=== PATIENT | female | born 1965 | race Caucasian/White ===

== ENCOUNTER 2018-07-21 17:02 | Emergency (ER) | payer MEDICAID, OTHER ==
[~2018-07-21] VITALS: Ht 165.1 cm; Wt 80.7 kg
[~2018-07-21 17:02] MED LIST: SYN.075 PO
[2018-07-21 17:18] VITALS: BP 133/91
--- NOTE | 2018-07-21 17:20 | NUR ---
PATIENT PRESENTS TO ED WITH C/O GENERAL WEAKNESS SINCE YESTERDAY. PT STATES IT STARTED YESTERDAY AT [facility] PT STATES SHE HAS GENERALIZED BODY ACHES IN HER BONE . DENIES N/V/D; SKIN IS PINK/WARM/DRY; AAOX4 WITH EVEN AND STEADY GAIT; LUNGS CLEAR BL; HR EVEN AND REGULAR; PT DENIES ANY FEVER, CP, SOB, OR COUGH AT THIS TIME; PATIENT STATES PAIN OF 5/10 AT THIS TIME; VSS; PATIENT POSITIONED FOR COMFORT; HOB ELEVATED; BEDRAILS UP X2; BED DOWN. ER MD MADE AWARE OF PT STATUS.
[2018-07-21 18:43] LABS: BASOPHILS % (AUTO) 0.1 % (0.0-2.0); EOSINOPHILS # (AUTO) 0.1 K/uL (0-0.4); EOSINOPHILS % (AUTO) 2.4 % (0.0-4.0); HEMATOCRIT 38.3 % (36-48); HEMOGLOBIN 12.5 g/dL (12.0-16.0); LYMPHOCYTES # (AUTO) 0.9 K/uL (2.5-16.5); LYMPHOCYTES % (AUTO) 24.1 % (20.5-51.1); MEAN CORPUSCULAR HEMOGLOBIN 30 pg (27-31); MEAN CORPUSCULAR HGB CONC 33 g/dL (33-37); MEAN CORPUSCULAR VOLUME 90.8 fL (80-94); MONOCYTES # (AUTO) 0.5 K/uL (0.8-1.0); MONOCYTES % (AUTO) 12.6 % (1.7-9.3); NEUTROPHILS # (AUTO) 2.3 K/uL (1.8-7.7); NEUTROPHILS % (AUTO) 60.8 % (42.2-75.2); PLATELET COUNT (AUTO) 228 K/uL (140-450); RED BLOOD CELL COUNT(AUTO) 4.22 MIL/uL (4.20-5.40); RED CELL DISTRIBUTION WIDTH 12.7 % (11.6-13.7); WHITE BLOOD COUNT (AUTO) 3.8 K/uL (4.8-10.8)
[2018-07-21 18:53] LABS: CARBON DIOXIDE 32.2 mmol/L (21-32); CREATININE 0.8 mg/dL (0.6-1.3); POTASSIUM 4.2 mmol/L (3.5-5.1)
[2018-07-21 19:06] LABS: ALBUMIN 3.5 g/dL (3.4-5.0); TOTAL BILIRUBIN 0.2 mg/dL (0.0-1.0)
--- NOTE | 2018-07-21 19:10 | NUR ---
FLU SWABS DONE, SENT TO LAB. PT TOLERATED WELL.
--- NOTE | 2018-07-21 19:12 | NUR ---
STEPHEN GAVE REPORT, PT VSS.
--- NOTE | 2018-07-21 20:52 | NUR ---
Dr. Mauro evaluating patient at bedside.
[2018-07-21 21:03] VITALS: BP 133/91
--- NOTE | 2018-07-21 21:03 | NUR ---
Patient discharged with v/s stable. Written and verbal after care instructions given and explained. Patient verbalized understanding. Ambulatory with steady gait. All questions addressed prior to discharge. Advised to follow up with PMD.
== END 2018-07-21 21:03 | disposition home or self-care (01) ==
LOC: MED 17:02
DX: B34.9 Viral infection, unspecified (principal); E11.9 Type 2 diabetes mellitus without complications; I10 Essential (primary) hypertension; E03.9 Hypothyroidism, unspecified; Z79.899 Other long term (current) drug therapy
CPT/HCPCS: 36415; 71045; 80053; 81002; 81025; 85025; 87804; 99284

== ENCOUNTER 2018-12-25 12:57 | Emergency (ER) | payer SELFPAY ==
[~2018-12-25] VITALS: Ht 165.1 cm; Wt 79.4 kg
[2018-12-25 13:11] VITALS: BP 116/64
[2018-12-25] MEDS ORDERED: IBUPROFEN 800 MG TAB PO ONE (13:35)
[2018-12-25] MEDS ORDERED: HYDROcodone/APAP 5/325 MG 1 TAB TAB PO ONE (13:35)
--- NOTE | 2018-12-25 13:45 | NUR ---
PT PROVIDED WITH BEDPAN TO PEE. UNABLE TO PEE AT THIS TIME. WILL GIVE SOME WATER.
--- NOTE | 2018-12-25 13:50 | NUR ---
PT WENT FOR X-RAY.
--- NOTE | 2018-12-25 14:29 | NUR ---
pt refusing norco, states she had bad experience previously where she didnt like the way she felt, dr ordonez made aware, pt ok with motrin.
--- NOTE | 2018-12-25 14:30 | NUR ---
pt states she is unable to urinate at this time, pt states she has had tubal ligation and is sure she is not .
--- NOTE | 2018-12-25 14:43 | NUR ---
bib family for rt hip s/p dancing yesterday. pt denies fall or trauma at time of injury. pt has not been able to bear weight on rt leg. pt took tylenol at home w/ mild relief. pt awake and alert, pt sitting in bed positioned to comfort.
[2018-12-25] MEDS ORDERED: ONDANSETRON 4 MG/2 ML VIAL IVP ONE (15:05)
[2018-12-25] MEDS ORDERED: NACL 0.9% 1,000 ML IV ONE (15:05)
[2018-12-25 15:32] LABS: BILIRUBIN,URINE NEGATIVE (NEGATIVE); BLOOD, URINE TRACE-I (NEGATIVE); COLOR,URINE YELLOW (YELLOW); LEUKOCYTE ESTERASE ,URINE NEGATIVE (NEGATIVE); NITRITE, URINE NEGATIVE (NEGATIVE); UGLUCOSE NEGATIVE (NEGATIVE)
[2018-12-25 15:33] LABS: APPEARANCE,URINE CLEAR (CLEAR); WBC,URINE 0-5 /HPF (0-5)
--- NOTE | 2018-12-25 15:33 | NUR ---
pt to ct scan via wheelchair.
[2018-12-25 15:34] LABS: BASOPHILS # (AUTO) 0.1 K/uL (0.00-0.22); BASOPHILS % (AUTO) 0.6 % (0.0-2.0); EOSINOPHILS % (AUTO) 0.4 % (0.0-4.0); HEMATOCRIT 38.4 % (36-48); HEMOGLOBIN 12.8 g/dL (12.0-16.0); LYMPHOCYTES # (AUTO) 1.5 K/uL (2.5-16.5); LYMPHOCYTES % (AUTO) 18.3 % (20.5-51.1); MEAN CORPUSCULAR HEMOGLOBIN 31 pg (27-31); MEAN CORPUSCULAR HGB CONC 33 g/dL (33-37); MEAN CORPUSCULAR VOLUME 91.7 fL (80-94); MONOCYTES # (AUTO) 0.6 K/uL (0.8-1.0); MONOCYTES % (AUTO) 7.6 % (1.7-9.3); NEUTROPHILS # (AUTO) 6.1 K/uL (1.8-7.7); NEUTROPHILS % (AUTO) 73.1 % (42.2-75.2); PLATELET COUNT (AUTO) 308 K/uL (140-450); RED BLOOD CELL COUNT(AUTO) 4.19 MIL/uL (4.20-5.40); RED CELL DISTRIBUTION WIDTH 13.6 % (11.6-13.7); WHITE BLOOD COUNT (AUTO) 8.3 K/uL (4.8-10.8)
[2018-12-25 15:42] LABS: CARBON DIOXIDE 30.8 mmol/L (21-32); CREATININE 0.8 mg/dL (0.6-1.3); POTASSIUM 3.8 mmol/L (3.5-5.1)
[2018-12-25 15:49] LABS: ALBUMIN 3.6 g/dL (3.4-5.0); TOTAL BILIRUBIN 0.3 mg/dL (0.0-1.0)
--- NOTE | 2018-12-25 16:30 | NUR ---
PT STATES MOTRIN HELPED WITH HER PAIN, 5/10 AT THIS TIME.
[2018-12-25 16:45] VITALS: BP 92/58
--- NOTE | 2018-12-25 16:45 | NUR ---
Patient discharged with v/s stable. Written and verbal after care instructions given and explained. Patient alert, oriented and verbalized understanding of instructions. Ambulatory with steady gait. All questions addressed prior to discharge. ID band removed. Patient advised to follow up with PMD. Rx of IBUPROFEN, ZOFRAN, NORCO given. Patient educated on indication of medication including possible reaction and side effects. Opportunity to ask questions provided and answered.
== END 2018-12-25 16:45 | disposition home or self-care (01) ==
LOC: MED 12:57
DX: S76.011A Strain of muscle, fascia and tendon of right hip, initial encounter (principal); R10.31 Right lower quadrant pain; I10 Essential (primary) hypertension; E03.9 Hypothyroidism, unspecified; E11.9 Type 2 diabetes mellitus without complications; Z79.899 Other long term (current) drug therapy; X50.1XXA Overexertion from prolonged static or awkward postures, initial encounter; Y93.41 Activity, dancing; Y92.89 Other specified places as the place of occurrence of the external cause; Y99.8 Other external cause status
CPT/HCPCS: 36415; 72170; 73502; 74176; 80053; 81001; 83690; 85025; 99284; J7030; J2405

== ENCOUNTER 2020-09-22 09:35 | Emergency (ER) | payer OTHER ==
[~2020-09-22] VITALS: Ht 165.1 cm; Wt 79.4 kg
[2020-09-22 09:39] VITALS: BP 142/76
--- NOTE | 2020-09-22 10:12 | NUR ---
Sasha khalil in [facility] - 09/22/20 at 1031 by [email or web address] BAD AT BEDSIDE
--- NOTE | 2020-09-22 10:12 | NUR ---
PT AMBULATED TO BED 10.
--- NOTE | 2020-09-22 10:13 | NUR ---
55 Y/O FEMALE C/O MID CHEST PAIN RADIATING TO SHOULDER/BACK THAT STARTED TODAY AT 0800. PT WAS SITTING UPRIGHT WHEN IT OCCURED. PT STATES PAIN IS INTERMITTENT AND WAS 10/10 PRESSURE/STABBING LIKE. AT THIS TIME, PT RATES PAIN 6/10 BUT NOT REQUESTING PAIN AT THIS TIME. PT TOOK ASPIRIN 81 MG AT HOME W/O RELIEF. PT DENIES N/V/FUNEZ/LIGHTHEADEDNESS/SOB. PT IS A/O X4 WITH EVEN AND UNLABORED RESPIRATIONS. PT LAYING IN BED WITH BED IN LOWEST POSITION, BRAKES LOCKED, X1 SIDERAIL UP. PMH: HYPOTHYROID- TAKES LEVO 128MG DAILY IN AM NKA
--- NOTE | 2020-09-22 10:13 | NUR ---
lab at bedside
[2020-09-22 10:17] LABS: BASOPHILS % (AUTO) 0.5 % (0.0-2.0); EOSINOPHILS # (AUTO) 0.1 K/uL (0-0.4); EOSINOPHILS % (AUTO) 2.3 % (0.0-4.0); HEMATOCRIT 39.6 % (36-48); HEMOGLOBIN 13.2 g/dL (12.0-16.0); LYMPHOCYTES # (AUTO) 1.7 K/uL (2.5-16.5); LYMPHOCYTES % (AUTO) 29.5 % (20.5-51.1); MEAN CORPUSCULAR HEMOGLOBIN 31 pg (27-31); MEAN CORPUSCULAR HGB CONC 34 g/dL (33-37); MEAN CORPUSCULAR VOLUME 91.5 fL (80-94); MONOCYTES # (AUTO) 0.5 K/uL (0.8-1.0); MONOCYTES % (AUTO) 8.4 % (1.7-9.3); NEUTROPHILS # (AUTO) 3.5 K/uL (1.8-7.7); NEUTROPHILS % (AUTO) 59.3 % (42.2-75.2); PLATELET COUNT (AUTO) 251 K/uL (140-450); RED BLOOD CELL COUNT(AUTO) 4.32 MIL/uL (4.20-5.40); WHITE BLOOD COUNT (AUTO) 5.9 K/uL (4.8-10.8)
[2020-09-22 10:25] LABS: ANION GAP 10.9 (8-16); CARBON DIOXIDE 30.5 mmol/L (21-32); CREATININE 0.8 mg/dL (0.6-1.3); POTASSIUM 4.4 mmol/L (3.5-5.1)
--- NOTE | 2020-09-22 10:32 | NUR ---
RAD AT BEDSIDE
--- NOTE | 2020-09-22 11:15 | NUR ---
dr mccoy at bedside
[2020-09-22] MEDS ORDERED: KETOROLAC 30 MG/ML VIAL IVP ONE (12:00)
[2020-09-22 13:36] VITALS: BP 121/65
== END 2020-09-22 13:37 | disposition home or self-care (01) ==
LOC: MED 09:35
DX: I45.10 Unspecified right bundle-branch block (principal); E03.9 Hypothyroidism, unspecified
CPT/HCPCS: 36415; 71045; 80048; 84484; 85025; 93005; 96374; 99285; J1885

== ENCOUNTER 2021-02-08 09:29 | Emergency (ER) | payer OTHER ==
[~2021-02-08] VITALS: Ht 165.1 cm; Wt 85.3 kg
[2021-02-08 09:36] VITALS: BP 132/81
--- NOTE | 2021-02-08 09:39 | NUR ---
Pt taken to bed 3.
--- NOTE | 2021-02-08 09:48 | NUR ---
55 Y/O FEMALE C/O NECK PAIN 01/29 X4DAYS. PT DENIES CHEST PAIN, DENIES SOB, DENIES N/V, DENIES FEVER/CHILLS. PT STATES SHE FEELS "SOMETHING IS STUCK IN THROAT". PT STATES SINCE THIS AM THE LUMP HAS FELT WORSE IN HER THROAT. SPO2 97% ON RA. DENIES PMH NKA
--- NOTE | 2021-02-08 11:10 | NUR ---
pt ambulated to restroom, gait steady
--- NOTE | 2021-02-08 11:14 | NUR ---
pt ambulated to room 3, gait steady
[2021-02-08] MEDS ORDERED: KETOROLAC 60 MG/2 ML VIAL IM ONE (11:25)
--- NOTE | 2021-02-08 11:31 | NUR ---
pt currently resting bedside with lights on and bed in lowest position. siderail x1 up and bed in locked position. pt currently 10/10 pain and provided with pain medication. will continue to monitor. vital signs stable
--- NOTE | 2021-02-08 11:34 | NUR ---
dr. camejo bedside evaluating pt
[2021-02-08] MEDS ORDERED: DIAZ5TAB7 PO (11:43)
[2021-02-08] MEDS ORDERED: IBUP-2213 PO (11:43)
[2021-02-08 11:51] VITALS: BP 134/89
--- NOTE | 2021-02-08 11:52 | NUR ---
Patient discharged with v/s stable. Written and verbal after care instructions given and explained. Patient alert, oriented and verbalized understanding of instructions. Ambulatory with steady gait. All questions addressed prior to discharge. ID band removed. Patient advised to follow up with PMD. Rx of diazepem and ibuprofen given. Patient educated on indication of medication including possible reaction and side effects. Opportunity to ask questions provided and answered.
== END 2021-02-08 11:52 | disposition home or self-care (01) ==
LOC: MED 09:29
DX: M54.2 Cervicalgia (principal); E03.9 Hypothyroidism, unspecified; Z79.899 Other long term (current) drug therapy
CPT/HCPCS: 96372; 99283; J1885